=== PATIENT | female | born 1940 | race Caucasian/White ===

== ENCOUNTER 2023-07-05 19:01 | Emergency (ER) | payer OTHER, SELFPAY ==
[2023-07-05] VITALS (11 sets, daily range): BP systolic 117–151; BP diastolic 53–74
[2023-07-05 19:20] LABS: Glucose - Point of Care 113 mg/dl (70-99)
[2023-07-05 19:29] LABS: % Basophils 0.6 % (0-2); % Eosinophils 0.7 % (0-6); % Immature Granulocytes 0.2 % (0-0.5); % Lymphocytes 23.8 % (20.5-51.1); % Monocytes 13.9 % (1.7-9.3); % Neutrophils 60.8 % (42.2-75.2); Absolute Lymphocytes 1.3 10^3/uL (1.2-3.4); Absolute Monocytes 0.7 10^3/uL (0.1-0.6); Absolute Neutrophils 3.3 10^3/uL (1.4-6.5); Mean Corp Hgb Conc. 34.9 g/dL (33.0-37.0); Mean Corpuscular Hgb 29.1 pg (27.0-31.0); Mean Corpuscular Volume 83.3 fL (81.0-99.0); Mean Platelet Volume 11.5 fL (7.4-10.4); Nucleated Red Blood Cells % 0 %; Platelet Count 214 10^3/uL (130-400); Red Blood Cell Count 5.16 10^6/uL (4.20-5.40); Red Cell Dist. Width 14.5 % (11.5-14.5); White Blood Cell Count 5.3 10^3/uL (4.8-10.8)
--- NOTE | 2023-07-05 19:37 | ED.CVA ---
History of Present Illness
General
Chief Complaint: CVA/TIA Symptoms
Source: family and ambulance crew
Exam Limitations: clinical condition
Time Seen by Provider: 07/05/23 19:05
Onset of Stroke Symptoms
Onset of symptoms known: No
Time pt last seen normal is known: Yes
Date last time pt seen normal: 07/05/23
Time last time pt seen normal: 12:00
Travel History
Have you had any contact with someone who has COVID-19?: Unable to Answer
Do you have any symptoms of coronavirus? Fever > 100 degrees, chills, cough, shortness of breath, sore throat, loss of taste or smell, muscle aches, or headache?: Unable to Answer
History of Present Illness
History of Present Illness:
83-year-old female apparently went to take a nap at around noon. Son came home from work at 6 PM and found her on the floor with a significant neurologic change. History of intracerebral bleed. Restarted Xarelto about a month ago. Faithful with
medications. Took it this morning. Previous bleed left very minimal residual weakness. Son noted significant facial droop slurred speech and right-sided weakness. Prehospital stroke alert was called.
Past History
Past History
ED Past Medical History: Arrthythmia, HTN, Hypercholesterolemia, Hypothyroidism, Other (dvt ) and Other (Intracranial hemorrhage)
ED Past Surgical History: Appendectomy, Cholecystectomy and Gynecological
Social History
Tobacco: Non-smoker
Alcohol: None
Drug: None
Personal:
Living: with family
Employment: Retired
Family History
Family History: Other (Noncontributory)
Phy Exam
Physical Exam
Physical Exam:
GENERAL: Alert. Will follow commands
EYE: Orbits normal. Left gaze preference
NECK: Supple, no significant adenopathy.
ENT: Pharynx without erythema
CARDIAC: Minimally irregular no murmur
LUNGS: Clear breath sounds,normal
ABDOMEN: Soft, without focal tenderness or distention
NEUROLOGICAL: Alert. Will follow simple commands. Significant right arm weakness. Somewhat stiff. Unable to hold up against gravity. Significant right leg weakness. Upgoing Babinski on the right. Decreased sensation to the right arm. Facial
droop.
SKIN: Warm and dry, no rash or lesion, no discoloration, skin intact.
MUSCULOSKELETAL: No edema,no deformity.Good color
PSYCH: Normal and appropriate interaction.
Course
Orders/Labs/Results
Orders:
Orders
07/05/23 19:04
Electrocardiogram (*1) Urgent
Reason for Study: Other
Other Reason for Exam: Possible Stroke
Bedside Glucose- Treatment ONCE
Cardiac Monitoring- Treatment ONCE
EKG- Treatment ONCE
IV Insert/Care/Rem.- Treatment PRN
Vital Signs As Directed
Frequency: Other
Weight As Directed
Frequency: Once
Comment: ZERO STRETCHER SCALE FOR ACCURATE WEIGHT
O2 Therapy [RESP] Urgent
Titrate/Wean O2 to maintain O2 sat greater than (%): 93
Special Instructions: MAINTAIN CONTINUOUS O2 SATS > OR = 93%
07/05/23 19:05
CT Head W/o Cont STROKE ALERT Stat
Comment:
Reason For Exam: cva symptoms
07/05/23 19:16
Basic Metabolic Panel Urgent
PTT Urgent
Prothrombin Time Urgent
07/05/23 19:17
Complete Blood Count/With Diff Urgent
Troponin I Urgent
07/05/23 19:44
Prothrombin Complex(Pcc),Human [Kcentra] 1,648 unit Empty Viaflex Container 100 ml [Viaflex Empty Container] 60 ml IV NOW
Does patient have a dx of serious acute active bleeding?: Yes
Does patient have prior history of HIT?: No
Abnormal Lab Results
07/05/23 07/05/23 07/05/23
19:16 19:17 19:19
MPV 11.5 H fL
(7.4-10.4)
Absolute Monos (auto) 0.7 H 10^3/uL
(0.1-0.6)
Monocytes % 13.9 H %
(1.7-9.3)
PT 19.8 H Sec
(11.4-14.6)
APTT 47.0 H Sec
(23.4-35.0)
Sodium 134 L mmol/L
(135-145)
BUN 27 H mg/dl
(7-17)
Glucose 122 H mg/dl
(70-99)
POC Glucose 113 H mg/dl
(70-99)
07/05/23 19:17
07/05/23 19:16
Vital Signs
Initial and Last Documented VS:
Initial Vital Signs
Pulse
76
07/05/23 19:12
Last Documented Vital Signs
Temp Pulse Resp BP Pulse Ox
97.5 F 72 32 130/63 94
07/05/23 19:13 07/05/23 21:31 07/05/23 21:31 07/05/23 21:31 07/05/23 21:31
*Radiology
Radiology exam reviewed: preliminary read by ED provider (3 cm thalamic bleed) and radiology read reviewed (3 cm thalamic bleed)
*Pulse Oximetry
Patient hypoxic: no
*EKG
Interpreted by ED Provider?: Yes
Interpretation: abnormal
Comparison EKG: no changes
Heart Rate: 68
Rate: normal
Rhythm: a-fib
[place]: normal axis
Interval: normal interval
QRS Pattern: normal QRS
Ischemia: non-specific ST changes
*[employer] Interpretation
Rate: normal
Interpretation: abnormal
Heart Rate: 70
Rhythm: a-fib
*Critical Care Note
Total Time (30-74mins, 75-104mins- exclusive of procedures): 45
Update Note
Update Note:
I was in CAT scan witnessing the CT. Talked to the family and son at length. Referral to [facility] at the request. Andrew ordered. Last blood pressure 120s over 50s. Will hold on nicardipine at this time but will have ready in case
the blood pressure rises. Maintaining her airway. Full code.
Discussed with neurosurgery at [place]. Agree with Andrew.
2039... Apparently no ALS is available. Helicopter is not flying due to weather. She has remained clinically stable. Son updated. Next available ALS is about midnight
ED Attending Note
-
Portions of this chart may have been created with voice recognition software.� Occasional wrong word or��sound alike� substitutions may have occurred due to the inherent limitations of voice recognition software.
Discharge Plan
Departure
Patient Disposition: Acute Care Hospital
Date of Disposition: 07/05/23
Time of Disposition: 19:35
Discharge Problem:
3 cm thalamic intracerebral bleed
Prescriptions:
No Action
levothyroxine 25 MCG tablet
25 mcg PO DAILY
amlodipine 10 mg Tablet
10 mg PO DAILY Qty: 0
ezetimibe 10 MG tablet
10 mg PO DAILY
hydralazine 50 mg tablet
50 mg PO TID
nitroglycerin 0.4 mg tablet, sublingual
0.4 mg sublingual [id number] PRN (Reason: chest pain)
atorvastatin 20 mg tablet
20 mg PO DAILY
spironolactone 25 mg tablet
25 mg PO DAILY
Xarelto 15 mg tablet
15 mg PO DAILY
Hospital Transfer
Other hospital: [facility]
I certify that the patient requires transfer: Yes
Discussed case with accepting physician: [place]
Reason for transfer: higher level of care
Interventions
Interventions:
*General Assessment Last Done: 07/05/23 19:48
*Nursing Disposition Last Done: 07/05/23 21:48
ED- Pulmonary Assessment Last Done: 07/05/23 19:20
ED- Neurological Assessment Last Done: 07/05/23 20:20
ED- Cardiac Assessment Last Done: 07/05/23 19:20
ED Swallowing Screen Last Done: 07/05/23 19:19
Discharge Date and Time
Discharge Date/Time: 07/05/23 21:49
[2023-07-05 19:39] LABS: PT 19.8 Sec (11.4-14.6)
[2023-07-05 19:53] LABS: Troponin I < 0.012 ng/ml
[2023-07-05] MEDS: KCENTRA 60 UNIT IV (19:54)
[2023-07-05 20:25] LABS: Blood Urea Nitrogen 27 mg/dl (7-17); Calcium 9.8 mg/dl (8.4-10.2); Carbon Dioxide 23 mmol/L (22-30); Chloride 103 mmol/L (98-107); Glucose 122 mg/dl (70-99); Sodium 134 mmol/L (135-145); eGFR > 60.00
== END 2023-07-05 21:49 | disposition short-term general hospital (02) ==
LOC: EMR 19:01
PROVIDERS: Emergency Medicine; EMERGENCY PHYSICIAN Emergency Medicine; FAMILY PHYSICIAN Internal Medicine Cardiovascular Disease
DX: I61.0 Nontraumatic intracerebral hemorrhage in hemisphere, subcortical (principal); I10 Essential (primary) hypertension; Z79.01 Long term (current) use of anticoagulants
CPT/HCPCS: 70450; 80048; 82962; 84484; 85025; 85610; 85730; 93005; 96374; 99291; J7168

== ENCOUNTER 2025-04-05 19:06 | Emergency (ER) | payer OTHER, SELFPAY ==
[2025-04-05 19:08] VITALS: BP 131/90
[2025-04-05 19:25] LABS: Hematocrit 40.0 % (37.0-47.0); Hemoglobin 13.6 g/dL (12.0-16.0); Mean Corp Hgb Conc. 34.0 g/dL (33.0-37.0); Mean Corpuscular Volume 90.1 fL (81.0-99.0); Nucleated Red Blood Cells % 0 %; Platelet Count 223 10^3/uL (130-400); Red Cell Dist. Width 13.6 % (11.5-14.5)
[2025-04-05 19:54] LABS: ALT (SGPT) 35 U/L (0-35); AST (SGOT) 33 U/L (14-36); Albumin 3.5 g/dl (3.5-5.0); Alkaline Phosphatase 119 U/L (38-126); Blood Urea Nitrogen 27 mg/dl (7-17); Calcium 9.4 mg/dl (8.4-10.2); Carbon Dioxide 30 mmol/L (22-30); Chloride 103 mmol/L (98-107); Glucose 190 mg/dl (70-99); Potassium 3.8 mmol/L (3.5-5.1); Sodium 136 mmol/L (135-145); Total Protein 6.4 g/dl (6.3-8.2); eGFR > 60.00
--- NOTE | 2025-04-05 22:28 | ED.GENMED ---
History of Present Illness
General
Chief Complaint: Skin Problem
Source: family (Son who is at bedside) and previous hospital records (ED visit July 2023. Patient arrived with acute change in mental status. Found to have acute thalamic bleed. Transferred to [facility].)
Exam Limitations: altered mental status (History of multiple strokes. Chronically bedbound. Son is primary clinical research technician.)
Time Seen by Provider: 04/05/25 22:06
History of Present Illness
History of Present Illness:
HISTORY OF PRESENT ILLNESS
The patient is an 84-year-old female with a history of atrial fibrillation and prior traumatic intracerebral hemorrhage. In July 2023, she suffered an intracerebral hemorrhage and thalamic bleed, requiring urgent transfer to [facility] for
neurosurgical care. She resides at home with her son and receives home health care. The patients son, who is her primary caregiver, has brought her here today due to concerns about a worsening bed sore located in the sacral area.
The son reported that a caregiver noticed a skin breakdown, prompting the decision for a medical evaluation. No fever has been present, and her son is attentive to repositioning her regularly to prevent further pressure ulcer development. The
patients care includes application of relief creams and antiseptic washes. He has been applying emollient moisturizers and foam dressings.
Upon examination, there was a mild breakdown in the skin over the sacral area, with noticeable redness but no apparent infection. The area reflects the pressure from lying in one position more frequently on the side. Advice was provided on
optimizing position changes to alleviate pressure on the left side of the sacrum, where she tends to lean back while on her side.
Past History
Past History
ED Past Medical History: Arrthythmia (Atrial fibrillation), CVA (Multiple strokes, bedbound), HTN, Hypercholesterolemia, Hypothyroidism, Other (dvt ) and Other (Intracranial hemorrhage)
ED Past Surgical History: Appendectomy, Cholecystectomy and Gynecological
Social History
Tobacco: Non-smoker
Alcohol: None
Drug: None
Personal:
Living: with family
Employment: Retired
Family History
Family History: Other (Noncontributory)
Phy Exam
Physical Exam
Physical Exam:
GENERAL: 84-year-old woman appears chronically debilitated, bedbound. She is awake and alert, answers simple questions appropriately. Following simple commands. Appears in no acute distress. Preferentially lying on her right side. Son is
accompanying. Vital signs within normal limits.
EYE: pupils equal and reactive. anicteric
NECK: Supple, nontender, no meningismus, no significant adenopathy.
ENT: oral mucosa is moist. No rhinorrhea.
CARDIAC: Regular rate and rhythm. no murmur.
LUNGS: Clear breath sounds bilaterally, no acute respiratory distress, no wheezes/rales/rhonchi
ABDOMEN: Soft, nondistended, without focal tenderness, no r/g, no cvat. normoactive BS.
BACK: There is mild global erythema to the sacral region with a 2 cm x 1 cm area of superficial skin breakdown right mid sacral region with mild local induration. No drainage. Mild local tenderness to palpation. No palpable heat.
NEUROLOGICAL: Awake and alert, oriented x 2. Chronically bedbound.
SKIN: Warm and dry, normal color, stage II sacral decubitus as described above. No other skin breakdown noted.
MUSCULOSKELETAL: No C/C/E. peripheral pulses are full and equal b/l. No palpable tenderness.
PSYCH: Normal and appropriate interaction.
Course
Orders/Labs/Results
Orders:
Orders
04/05/25 19:17
CMP [Comprehensive Metabolic Panel] Urgent
Complete Blood Count/With Diff Urgent
Abnormal Lab Results
04/05/25
19:17
WBC 11.2 H 10^3/uL
(4.8-10.8)
MPV 11.4 H fL
(7.4-10.4)
Abs Immat Gran (auto) 0.1 H 10^3/uL
(0-0.05)
Absolute Neuts (auto) 8.7 H 10^3/uL
(1.4-6.5)
Absolute Monos (auto) 0.7 H 10^3/uL
(0.1-0.6)
Immature Gran % 0.8 H %
(0-0.5)
Neutrophils % 77.1 H %
(42.2-75.2)
Lymphocytes % 14.5 L %
(20.5-51.1)
BUN 27 H mg/dl
(7-17)
Creatinine 0.5 L mg/dL
(0.6-1.0)
Glucose 190 H mg/dl
(70-99)
04/05/25 19:17
04/05/25 19:17
Vital Signs
Initial and Last Documented VS:
Initial Vital Signs
Temp Pulse Resp BP Pulse Ox
97.5 F 82 20 131/90 95
04/05/25 19:08 04/05/25 19:08 04/05/25 19:08 04/05/25 19:08 04/05/25 19:08
Last Documented Vital Signs
Temp Pulse Resp BP Pulse Ox
97.5 F 82 20 131/90 95
04/05/25 19:08 04/05/25 19:08 04/05/25 19:08 04/05/25 19:08 04/05/25 19:08
MDM/Problems Addressed
Differential Diagnosis Includes:
DIFFERENTIAL DIAGNOSIS
The Differential Diagnosis includes, in no particular order and is not limited to:
1. Pressure ulcer
2. Superficial skin infection
3. Deep tissue injury
4. Herpes zoster
5. Recurrent cellulitis
6. Subcutaneous abscess
7. Dermatitis
8. Contact dermatitis
9. Osteomyelitis
10. Venous stasis ulcer
MDM/Problems Addressed:
Sacral decubitus stage II.
Moderate local tenderness to palpation with some erythema but no fever reported. No drainage. No evidence of abscess formation and area of skin breakdown is small, superficial.
Labs revealed minimally elevated white blood cell count. Minimally elevated BUN. Clinically patient is euvolemic.
Cared for at home by her son. Has home health aides.
Overall appears very well cared for.
Supportive measures discussed as well as recommendations for topical treatment of sacral decubitus.
Encouraged to continue frequent turning and while on her sides, recommend he ensure she is turned far enough on her side to ensure pressure is taken off of her sacrum.
Will refer to our wound care center for further evaluation and treatment.
Strict return precautions discussed including worsening of the skin wound, development of fever.
Chronic conditions affecting care:
Multiple strokes
Bedbound status
*Pulse Oximetry
SaO2: 95
Oxygen Mode of Delivery: Room air
Patient hypoxic: no
*Critical Care Note
Total Time (30-74mins, 75-104mins- exclusive of procedures): Not Applicable
Patient Management
Social determinants of health affecting care: Strong social support and Other (Chronically bedbound. Resides at home with her son. Receives help from home health services.)
ED Attending Note
-
Portions of this chart may have been created with voice recognition software.� Occasional wrong word or��sound alike� substitutions may have occurred due to the inherent limitations of voice recognition software.
Discharge Plan
Departure
Patient Disposition: Home (Routine Discharge)
Date of Disposition: 04/05/25
Time of Disposition: 22:32
Patient with high blood pressure during this ER visit?: No
Condition: Good
Discharge Problem:
Decubitus ulcer of sacral region, stage 2, History of multiple cerebrovascular accidents (CVAs), Chronically bedbound
Inst[facility]
Prescriptions:
No Action
levothyroxine 25 MCG tablet
25 mcg PO DAILY
amlodipine 10 mg Tablet
10 mg PO DAILY Qty: 0
ezetimibe 10 MG tablet
10 mg PO DAILY
hydralazine 50 mg tablet
50 mg PO TID
nitroglycerin 0.4 mg tablet, sublingual
0.4 mg sublingual [id number] PRN (Reason: chest pain)
atorvastatin 20 mg tablet
20 mg PO DAILY
spironolactone 25 mg tablet
25 mg PO DAILY
Xarelto 15 mg tablet
15 mg PO DAILY
Referrals:
Wound Care Center [Outside] - Call in 1-3 days for appt
Interventions
Interventions:
*Risk Screen - Suicide Last Done: 04/05/25 19:08
*General Assessment Last Done: 04/05/25 19:08
*Neglect/Abuse Screening Last Done: 04/05/25 19:08
ED-Skin Assessment Last Done: 04/05/25 21:50
Discharge Date and Time
Print Language: KOSOVAN
[2025-04-05 22:45] VITALS: BP 128/75
== END 2025-04-05 23:06 | disposition home or self-care (01) ==
LOC: EMR 19:06
PROVIDERS: Emergency Medicine; EMERGENCY PHYSICIAN Emergency Medicine; FAMILY PHYSICIAN Family Medicine
DX: L89.152 Pressure ulcer of sacral region, stage 2 (principal); I48.91 Unspecified atrial fibrillation; E03.9 Hypothyroidism, unspecified; E78.00 Pure hypercholesterolemia, unspecified; I10 Essential (primary) hypertension; Z86.718 Personal history of other venous thrombosis and embolism; Z86.73 Personal history of transient ischemic attack (TIA), and cerebral infarction without residual deficits; Z74.01 Bed confinement status
CPT/HCPCS: 99283; 80053; 85025